=== PATIENT | male | born 1960 | race Caucasian/White ===

== ENCOUNTER 2016-07-06 07:56 | Observation (INO) | payer BC, OTHER ==
[2016-07-06] VITALS (8 sets, daily range): BP systolic 120–158; BP diastolic 69–93
[~2016-07-06] VITALS: Ht 172.7 cm; Wt 95.3 kg
--- OUTSIDE RECORDS SUMMARY | 2016-07-06 08:01 | XMS REPORT ---
Author Author GILLES LUKE [facility] eClinicalWorks Address Unknown Phone Unavailable Care Team Providers Care Planning Analyst Name Role Phone GILLES LUKE CP Unavailable Allergies, Adverse Reactions, Alerts Substance Reaction Event Type N.K.D.A. Info Not Available Non Drug Allergy Problems Problem Type Condition Code Onset Dates Condition Status Assessment Nasal congestion R09.81 Active Assessment Acute recurrent frontal sinusitis J01.11 Active Medications Medication Code System Code Instructions Start Date End Date Status Dosage Zithromax Z-Aiden [facility] [id number] 250 MG Orally Once a day Dec 05, 2015 Dec 10, 2015 2 tablets on the first day, then 1 tablet daily for 4 days Procedures Procedure Coding System Code Date DEPO MEDROL 80 MG/ML CPT-4 J1040 Dec 05, 2015 THER/PROPH/DIAG INJ, SC/IM CPT-4 41673 Dec 05, 2015 Office Visit, Est Pt., Level 3 CPT-4 62642 Dec 05, 2015 Vital Signs Date/Time: Dec 05, 2015 Cardiac Monitoring Heart Rate 72 bpm Weight 210.1 lbs Height 69 in BMI 31.02 Index Blood Pressure Diastolic 78 mmHg Blood Pressure Systolic 126 mmHg Results No Known Results Summary Purpose eClinicalWorks Submission
[2016-07-06] MEDS: RX-NITROGLYCERIN 0.4 MG TAB BTL 25'S SL ONE ×2 (08:11→09:24)
[2016-07-06] MEDS ORDERED: ASPIRIN 81 MG CHEW (CHILDREN'S ASA) PO ONE (08:15)
[2016-07-06 08:24] LABS: BASOPHILS # (AUTO) 0.1 10^3/uL (0.0-0.1); BASOPHILS % (AUTO) 1 % (0-10); EOSINOPHILS # (AUTO) 0.3 10^3/uL (0.0-0.3); EOSINOPHILS % (AUTO) 4 % (0-10); LYMPHOCYTES % (AUTO) 28 % (12-44); MEAN CORPUSCULAR HEMOGLOBIN 30 PG (25-34); MEAN CORPUSCULAR HGB CONC 35 G/DL (32-36); MEAN CORPUSCULAR VOLUME 86 FL (80-99); MEAN PLATELET VOLUME 9.6 FL (7.4-10.4); MONOCYTES # (AUTO) 0.5 X 10^3 (0.0-1.0); MONOCYTES % (AUTO) 8 % (0-12); NEUTROPHILS # (AUTO) 4.2 X 10^3 (1.8-7.8); NEUTROPHILS % (AUTO) 60 % (42-75); PLATELET COUNT 217 10^3/uL (130-400); RED BLOOD COUNT 5.28 10^6/uL (4.35-5.85); RED CELL DISTRIBUTION WIDTH 12.7 % (10.0-14.5); WHITE BLOOD COUNT 7.1 10^3/uL (4.3-11.0)
--- NOTE | 2016-07-06 08:39 | Diagnostic Imaging Report ---
CLINICAL INDICATION: Patient complains of right shoulder pain radiating to the chest since yesterday morning. EXAM: Chest x-ray PA and lateral views. COMPARISONS: None. FINDINGS: Lungs/pleura: Lungs are clear. There is no pneumothorax. There is no pleural effusion. Mediastinum: Unremarkable. Pulmonary vasculature: Unremarkable. Heart: Unremarkable. Bones/extrathoracic soft tissue: There are moderately hypertrophic degenerative osteophytes scattered throughout the thoracic spine. IMPRESSION: There is no radiographic evidence of acute cardiopulmonary process. Dictated by: Dictated on workstation # [id number]
[2016-07-06 08:43] LABS: INR 0.9 (0.8-1.4); PROTHROMBIN TIME PATIENT 12.3 SEC (12.2-14.7)
[2016-07-06 08:49] LABS: ALANINE AMINOTRANSFERASE 19 U/L (0-55); ALBUMIN 4.3 G/DL (3.2-4.5); ANION GAP 12 MMOL/L (5-14); ASPARTATE AMINO TRANSFERASE 25 U/L (5-34); BILIRUBIN,TOTAL 0.5 MG/DL (0.1-1.0); BLOOD UREA NITROGEN 13 MG/DL (7-18); BUN/CREATININE RATIO 11; CALCIUM 9.5 MG/DL (8.5-10.1); CARBON DIOXIDE 23 MMOL/L (21-32); CHLORIDE 105 MMOL/L (98-107); CREATININE SERUM 1.15 MG/DL (0.60-1.30); GFR ESTIMATED > 60; GLUCOSE 93 MG/DL (70-105); MAGNESIUM 2.2 MG/DL (1.8-2.4); SODIUM 140 MMOL/L (135-145); TOTAL PROTEIN 7.6 G/DL (6.4-8.2)
--- NOTE | 2016-07-06 08:49 | ED Chest Pain ---
General Chief Complaint: Chest Pain Stated Complaint: CHEST/BACK PAIN Nursing Triage Note: AMBULATED TO ROOM 05 WITH COMPLAINTS OF RIGHT SIDED CHEST PAIN THAT RADIATES INTO BACK AND RIGHT ARM. STATES HE HAD THIS PAIN YESTERDAY ALSO. DENIES CHEST PAIN AT THIS TIME BUT STATES ARM PAIN REMAINS. Nursing Sepsis Screen: No Definite Risk Source: patient Exam Limitations: no limitations History of Present Illness Time seen by provider: 07:57 Initial Comments This 55-year-old gentleman presents to the emergency room with complaints of intermittent right chest pain described as a soreness rated as 3/10. Pain actually started in the back and beneath the right shoulder blade and then radiated around to the front. It started yesterday afternoon while he was picking up limbs from the ground. Pain resolved but then started again today between 06:00 and 06:30 as he was driving into work. The pain was troublesome enough that he came back from work and decided to come to the hospital. He reports some increase in "soreness " with inspiration. Pain radiates down his right arm. He denies any injury or associated symptoms such as shortness of breath, cough, fever, etc. He had another episode concerning for "heart problems" a couple of years ago. Patient has a tobacco history and quit smoking about 20 years ago. He quit chewing tobacco about 3 months ago. He occasionally drinks alcohol. He still chews tobacco. He has a family history of aneurysm and heart disease in multiple brothers. Patient had some residual pain in the right arm and pain on inspiration in the right chest upon my initial interview. Pain resolved shortly thereafter before nitroglycerin was given. Aspirin was given but nitroglycerin was deferred. No tachycardia, hypoxia, or lower extremity symptoms were noted. Allergies and Home Medications Allergies Coded Allergies: No Known Drug Allergies (Unverified , 07/06/16) Home Medications No Active Prescriptions or Reported Meds Review of Systems Constitutional: no symptoms reported EENTM: No Symptoms Reported Respiratory: See HPI Cardiovascular: See HPI Gastrointestinal: No Symptoms Reported Genitourinary: No Symptoms Reported Musculoskeletal: see HPI Skin: no symptoms reported Psychiatric/Neurological: No Symptoms Reported Endocrine: No Symptoms Reported Past Voegbva-Dimauc-Vgooaw Hx Patient Social History Alcohol Use: Occasionally Uses Recreational Drug Use: No Smoking Status: Former Smoker Type Used: Smokeless Tobacco Recent Foreign Travel: No Contact w/Someone Who Travel: No Recent Infectious Disease Expo: No Recent Hopitalizations: No Seasonal Allergies Seasonal Allergies: Yes Surgeries HX Surgeries: No Respiratory Hx Respiratory Disorders: No Cardiovascular Hx Cardiac Disorders: No Neurological Hx Neurological Disorders: No Reproductive System Hx Reproductive Disorders: No Genitourinary Hx Genitourinary Disorders: No Gastrointestinal Hx Gastrointestinal Disorders: No Musculoskeletal Hx Musculoskeletal Disorders: No Endocrine Hx Endocrine Disorders: No HEENT HX ENT Disorders: No Cancer Hx Cancer: No Psychosocial Hx Psychiatric Problems: No Family Medical History Significant Family History: Vascular Disease (brother had an aneurysm) Physical Exam Vital Signs Vital Sign - Last 12Hours 07/06/16 07:56 Temp 98.1 Pulse 82 Resp 16 B/P 152/91 Pulse Ox 98 Capillary Refill : Less Than 3 Seconds General Appearance: No Apparent Distress WD/WN HEENT: PERRL/EOMI Normal ENT Inspection Pharynx Normal Other (missing teeth) Neck: Normal Inspection Respiratory: Chest Non Tender Lungs Clear Normal Breath Sounds No Accessory Muscle Use No Respiratory Distress Other (no tenderness in the posterior chest or musculature of the back) Cardiovascular: Regular Rate, Rhythm No Edema No Murmur Normal Peripheral Pulses Gastrointestinal: Normal Bowel Sounds Non Tender Soft Extremity: Normal Inspection Non Tender No Calf Tenderness No Pedal Edema Other (negative Yuliet) Neurologic/Psychiatric: Alert Oriented x3 No Motor/Sensory Deficits Normal Mood/Affect informatics pharmacist II-XII Norm as Tested Skin: Normal Color Warm/Dry Focused Exam Respiratory: Chest Non Tender Lungs Clear Normal Breath Sounds No Accessory Muscle Use No Respiratory Distress Cardiovascular: Regular Rate, Rhythm No Edema No Murmur Normal Peripheral Pulses Peripheral Pulses: 3+ Radial Pulses (R), 3+ Radial Pulses (L) Skin: normal color warm/dry Lactic Acid Level Laboratory Tests Test 07/06/16 08:18 Alanine Aminotransferase (ALT/SGPT) 19U/L (0-55) Albumin 4.3G/DL (3.2-4.5) Alkaline Phosphatase 63U/L (40-136) Anion Gap 12MMOL/L (5-14) Aspartate Amino Transf (AST/SGOT) 25U/L (5-34) BUN/Creatinine Ratio 11 Blood Urea Nitrogen 13MG/DL (7-18) Calcium Level 9.5MG/DL (8.5-10.1) Carbon Dioxide Level 23MMOL/L (21-32) Chloride Level 105MMOL/L (98-107) Creatinine 1.15MG/DL (0.60-1.30) Estimat Glomerular Filtration Rate > 60 Glucose Level 93MG/DL (70-105) Magnesium Level 2.2MG/DL (1.8-2.4) Myoglobin 65.9NG/ML (10.0-92.0) Potassium Level 4.0MMOL/L (3.6-5.0) Sodium Level 140MMOL/L (135-145) Total Bilirubin 0.5MG/DL (0.1-1.0) Total Protein 7.6G/DL (6.4-8.2) Troponin I < 0.30NG/ML (<0.30) Progress/Results/Core Measures Results/Orders Lab Results Laboratory Tests Test 07/06/16 08:18 Range/Units Activated Partial Thromboplast Time 28 24-35 SEC Alanine Aminotransferase (ALT/SGPT) 19 0-55 U/L Albumin 4.3 3.2-4.5 G/DL Alkaline Phosphatase 63 40-136 U/L Anion Gap 12 5-14 MMOL/L Aspartate Amino Transf (AST/SGOT) 25 5-34 U/L BUN/Creatinine Ratio 11 Basophils # (Auto) 0.1 0.0-0.1 10^3/uL Basophils (%) (Auto) 1 0-10 % Blood Urea Nitrogen 13 7-18 MG/DL Calcium Level 9.5 8.5-10.1 MG/DL Carbon Dioxide Level 23 21-32 MMOL/L Chloride Level 105 98-107 MMOL/L Creatinine 1.15 0.60-1.30 MG/DL Eosinophils # (Auto) 0.3 0.0-0.3 10^3/uL Eosinophils (%) (Auto) 4 0-10 % Estimat Glomerular Filtration Rate > 60 Glucose Level 93 70-105 MG/DL Hematocrit 46 40-54 % Hemoglobin 16.0 13.3-17.7 G/DL INR Comment 0.9 0.8-1.4 Lymphocytes # (Auto) 2.0 1.0-4.0 X 10^3 Lymphocytes (%) (Auto) 28 12-44 % Magnesium Level 2.2 1.8-2.4 MG/DL Mean Corpuscular Hemoglobin 30 25-34 PG Mean Corpuscular Hemoglobin Concent 35 32-36 G/DL Mean Corpuscular Volume 86 80-99 FL Mean Platelet Volume 9.6 7.4-10.4 FL Monocytes # (Auto) 0.5 0.0-1.0 X 10^3 Monocytes (%) (Auto) 8 0-12 % Myoglobin 65.9 10.0-92.0 NG/ML Neutrophils # (Auto) 4.2 1.8-7.8 X 10^3 Neutrophils (%) (Auto) 60 42-75 % Platelet Count 217 130-400 10^3/uL Potassium Level 4.0 3.6-5.0 MMOL/L Prothrombin Time 12.3 12.2-14.7 SEC Red Blood Count 5.28 4.35-5.85 10^6/uL Red Cell Distribution Width 12.7 10.0-14.5 % Sodium Level 140 135-145 MMOL/L Total Bilirubin 0.5 0.1-1.0 MG/DL Total Protein 7.6 6.4-8.2 G/DL Troponin I < 0.30 <0.30 NG/ML White Blood Count 7.1 4.3-11.0 10^3/uL My Orders Orders-USHA DOVER MD Cbc With Automated Diff (07/06/16 08:06) Magnesium (07/06/16 08:06) Ekg Tracing (07/06/16 08:06) Cardiac Profile 1 (07/06/16 08:06) Comprehensive Metabolic Panel (07/06/16 08:06) Myoglobin Serum (07/06/16 08:06) Protime With Inr (07/06/16 08:06) Partial Thromboplastin Time (07/06/16 08:06) O2 (07/06/16 08:06) Monitor-Rhythm Ecg Trace Only (07/06/16 08:06) Lipid Panel (07/07/16 06:00) Aspirin Chewable Tablet (Baby Aspirin Ch (07/06/16 08:15) Rx-Nitroglycerin Sl Tabs (Rx-Nitrostat S (07/06/16 08:15) Saline Lock/Iv-Start (07/06/16 08:06) Chest Pa/Lat (2 View) (07/06/16 08:06) Medications Given in ED Current Medications Medications Dose Ordered Sig/Jacob Route Start Time Stop Time Status Last Admin Dose Admin Aspirin 324 mg ONCE ONCE PO 07/06/16 08:15 07/06/16 08:16 DC 07/06/16 08:10 324 MG Vital Signs/I&O Vital Sign - Last 12Hours 07/06/16 07:56 Temp 98.1 Pulse 82 Resp 16 B/P 152/91 Pulse Ox 98 Blood Pressure Mean: 111 Progress Note : Time: 08:57 Progress Note Patient received aspirin after initial assessment. Pain resolved without treatment just after my interview and exam. He remains pain-free now. He remains in sinus rhythm with frequent PVCs. Chest x-ray was normal. Troponin is still pending but labs are otherwise negative. ECG Initial ECG Impression Date: Jul 06, 2016 Initial ECG Impression Time: 08:02 Initial ECG Rate: 87 Comment Sinus rhythm with frequent PVCs. Borderline left axis deviation. No abnormal intervals. No ST elevation or depression. Diagnostic Imaging Diagonstic Imaging: Xray Plain Films/CT/US/NM/MRI: chest Comments Chest x-ray viewed by me and report reviewed. See report below: NAME: ALICE COLES MED REC#: [id number] PT STATUS: REG ER : 1960 PHYSICIAN: USHA DOVER MD ADMIT DATE: 07/06/16/ER Draft Date of Exam:07/06/16 CHEST PA/LAT (2 VIEW) CLINICAL INDICATION: Patient complains of right shoulder pain radiating to the chest since yesterday morning. EXAM: Chest x-ray PA and lateral views. COMPARISONS: None. FINDINGS: Lungs/pleura: Lungs are clear. There is no pneumothorax. There is no pleural effusion. Mediastinum: Unremarkable. Pulmonary vasculature: Unremarkable. Heart: Unremarkable. Bones/extrathoracic soft tissue: There are moderately hypertrophic degenerative osteophytes scattered throughout the thoracic spine. IMPRESSION: There is no radiographic evidence of acute cardiopulmonary process. Dictated on workstation # [id number] Dict: 07/06/1634 Trans: 07/06/16 0838 [facility] [id number] Interpreted by: VILLA CULVER MD CP/AMI: Aspirin, ECG Departure Communication Time/Spoke to Admitting Phy: 09:10 Communication Case reviewed with Dr. De La Torre who is agreeable to admission for further chest pain workup. Time/Spoke to Consulting Physi: 09:05 Communication/Consulting Case reviewed with Dr. Chun who believes patient should be admitted for further evaluation as he has never had cardiac workup and has significant family history and tobacco history. Progress Notes Patient remained pain free until admission. Impression Impression: Primary Impression: Right-sided chest pain Additional Impression: Frequent PVCs Disposition: 09 ADMITTED INPATIENT Condition: Improved Decision to Admit Reason: Admit from ER (General) Decision to Admit/Date: Jul 06, 2016 Time/Decision to Admit Time: 09:05 Departure-Patient Inst. Scripts No Active Prescriptions or Reported Meds USHA DOVER MD Jul 06, 2016 08:49
[2016-07-06 08:55] LABS: MYOGLOBIN SERUM 65.9 NG/ML (10.0-92.0)
[2016-07-06] MEDS ORDERED: CATHETER FLUSH 10 ML SYR IV PRN (10:45)
[2016-07-06] MEDS ORDERED: morphine INJ 4 MG/ML 1 ML (VIAL/SYRINGE) IV PRN (10:45)
[2016-07-06] MEDS ORDERED: NITROGLYCERIN SUBLINGUAL 0.4 MG TAB (NITROSTAT) SL PRN (10:45)
[2016-07-06] MEDS ORDERED: ONDANSETRON 4 MG/2 ML (SDV) Z0FRAN IV PRN (10:45)
--- NOTE | 2016-07-06 15:11 | History & Physicial (CHS) ---
HPI History of Present Illness: Patient presented to ED due to chest pain. He had sharp shooting pain from right shoulder blade to front of chest yesterday afternoon for a few seconds and then on his way to work this morning it recurred and he overall felt not well, so he came in. He has no personal history of CAD. He does have a history of smoking, quit some time ago. He has significant family history of heart disease and a brother that at a young age. Attending Physician Sydnee De La Torre [facility] Date of Admission Jul 06, 2016 at 9:37 am Home Medications Home Medications Reviewed patient Home Medication Reconciliation Form Allergies Coded Allergies: No Known Drug Allergies (Unverified , 07/06/16) NPO-Qdbuvk-Tosplz Hx Patient Social History Alcohol Use: Occasionally Uses Recreational Drug Use: No Smoking Status: Former Smoker Type Used: Smokeless Tobacco Recent Foreign Travel: No Contact w/other who traveled: No Recent Hopitalizations: No Recent Infectious Disease Expo: No Physical Abuse Screen: No Sexual Abuse: No Immunizations Up To Date Date of Influenza Vaccine: Jan 26, 2016 Past Medical History PMHx: Denies PSurgHx: Denies Family Medical History Significant Family History: Vascular Disease (brother had an aneurysm) Review of Systems ([facility]) Constitutional: No fever EENTM: No nose congestion, No throat pain Respiratory: No cough, No short of breath Cardiovascular: see HPI Gastrointestinal: No abdominal pain, No constipation, No diarrhea, No nausea, No vomiting Genitourinary: no symptoms reported Musculoskeletal: joint pain Skin: No rash Psychiatric/Neurological: No Symptoms Reported Reviewed Test Results Reviewed Test Results Lab Laboratory Tests Test 07/06/16 08:18 07/06/16 11:07 Range/Units Activated Partial Thromboplast Time 28 24-35 SEC Alanine Aminotransferase (ALT/SGPT) 19 0-55 U/L Albumin 4.3 3.2-4.5 G/DL Alkaline Phosphatase 63 40-136 U/L Anion Gap 12 5-14 MMOL/L Aspartate Amino Transf (AST/SGOT) 25 5-34 U/L BUN/Creatinine Ratio 11 Basophils # (Auto) 0.1 0.0-0.1 10^3/uL Basophils (%) (Auto) 1 0-10 % Blood Urea Nitrogen 13 7-18 MG/DL Calcium Level 9.5 8.5-10.1 MG/DL Carbon Dioxide Level 23 21-32 MMOL/L Chloride Level 105 98-107 MMOL/L Creatinine 1.15 0.60-1.30 MG/DL Eosinophils # (Auto) 0.3 0.0-0.3 10^3/uL Eosinophils (%) (Auto) 4 0-10 % Estimat Glomerular Filtration Rate > 60 Glucose Level 93 70-105 MG/DL Hematocrit 46 40-54 % Hemoglobin 16.0 13.3-17.7 G/DL INR Comment 0.9 0.8-1.4 Lymphocytes # (Auto) 2.0 1.0-4.0 X 10^3 Lymphocytes (%) (Auto) 28 12-44 % Magnesium Level 2.2 1.8-2.4 MG/DL Mean Corpuscular Hemoglobin 30 25-34 PG Mean Corpuscular Hemoglobin Concent 35 32-36 G/DL Mean Corpuscular Volume 86 80-99 FL Mean Platelet Volume 9.6 7.4-10.4 FL Monocytes # (Auto) 0.5 0.0-1.0 X 10^3 Monocytes (%) (Auto) 8 0-12 % Myoglobin 65.9 10.0-92.0 NG/ML Neutrophils # (Auto) 4.2 1.8-7.8 X 10^3 Neutrophils (%) (Auto) 60 42-75 % Platelet Count 217 130-400 10^3/uL Potassium Level 4.0 3.6-5.0 MMOL/L Prothrombin Time 12.3 12.2-14.7 SEC Red Blood Count 5.28 4.35-5.85 10^6/uL Red Cell Distribution Width 12.7 10.0-14.5 % Sodium Level 140 135-145 MMOL/L Total Bilirubin 0.5 0.1-1.0 MG/DL Total Protein 7.6 6.4-8.2 G/DL Troponin I < 0.30 < 0.30 <0.30 NG/ML White Blood Count 7.1 4.3-11.0 10^3/uL Physical Exam-(CHC) Physical Exam Vital Signs VS - Last 72 Hours, by Label 07/06/16 07/06/16 07/06/16 07:56 09:55 10:00 Temp 98.1 97.2 Pulse 82 79 62 Resp 16 16 20 B/P 152/91 143/87 Pulse Ox 98 97 98 Capillary Refill : Less Than 3 Seconds General Appearance: WD/WN no apparent distress Respiratory: lungs clear normal breath sounds Cardiovascular: regular rate, rhythm no murmur Gastrointestinal: normal bowel sounds non tender soft Extremities: no pedal edema Neurologic/Psychiatric: alert normal mood/affect Skin: normal color warm/dry Assessment/Plan Assessment/Plan Admission Dx Chest pain Plan Chest pain: EKG with no ischemic changes, troponin initially negative, will follow -Cardiology consult DVT ppx- SCDs Diagnosis/Problems: Clinical Quality Measures AMI/AHF: ASA po Prior to arrival: No DVT/VTE Risk/Contraindication: Risk Factor Score Per Nursin RFS Level Per Nursing on Admit: 1=Low/No VTE PPX SYDNEE DE LA TORRE MD Jul 06, 2016 3:11 pm
--- NOTE | 2016-07-06 15:39 | Consultation-Cardiology ---
HPI-Cardiology Cardiology Consultation Date of Consultation 07/06/16 Date of Admission Indication: chest pain HPI 55 years old gentleman with no significant past history, started having chest pain described as dull achiness on the right side of her chest occurred yesterday and again this morning on his way to work, came into the emergency room, since arrival she has been doing well, noted to have frequent premature ventricular contractions on telemetry and on his EKG. Patient has a strong family history of heart disease. Denied any palpitation, syncope or near syncopal episode no claudication, no shortness of breath. Does not take any medications at home. Home Medications & Allergies Allergies: Coded Allergies: No Known Drug Allergies (Unverified , 07/06/16) Home Medication List Reviewed: Yes XUV-Kcjvgm-Stkxhz Hx Patient Social History Marital Status: Alcohol Use: Occasionally Uses Recreational Drug Use: No Smoking Status: Former Smoker Type Used: Smokeless Tobacco Recent Foreign Travel: No Recent Infectious Disease Expo: No Recent Hopitalizations: No Physical Abuse Screen: No Sexual Abuse: No Immunizations Up To Date Date of Influenza Vaccine: Jan 26, 2016 Past Medical History no significant past medical history Family Medical History Significant Family History: Vascular Disease (brother had an aneurysm) Family Medical Hx Strong family history of heart disease with brother had myocardial infarctions in his 30s, mother has history of heart attack Family History: Cardiovascular disease Hypertension Myocardial infarction Respiratory disorder Constitutional: no symptoms reported see HPI EENTM: no symptoms reported see HPI Respiratory: no symptoms reported see HPINo cough, No dyspnea on exertion, No hemoptysis, No orthopnea, No phlegm, No short of breath, No stridor, No wheezing , No other Cardiovascular: see HPI chest painNo edema, No Hx of Intervention, No palpitations, No syncope, No vascular heart diseas, No other Gastrointestinal: no symptoms reported see HPI Genitourinary: no symptoms reported see HPI Musculoskeletal: no symptoms reported see HPI Skin: no symptoms reported see HPI Psychiatric/Neurological: No Symptoms Reported See HPI Reviewed Test Results Reviewed Test Results Lab Laboratory Tests Test 07/06/16 08:18 07/06/16 11:07 Range/Units Activated Partial Thromboplast Time 28 24-35 SEC Alanine Aminotransferase (ALT/SGPT) 19 0-55 U/L Albumin 4.3 3.2-4.5 G/DL Alkaline Phosphatase 63 40-136 U/L Anion Gap 12 5-14 MMOL/L Aspartate Amino Transf (AST/SGOT) 25 5-34 U/L BUN/Creatinine Ratio 11 Basophils # (Auto) 0.1 0.0-0.1 10^3/uL Basophils (%) (Auto) 1 0-10 % Blood Urea Nitrogen 13 7-18 MG/DL Calcium Level 9.5 8.5-10.1 MG/DL Carbon Dioxide Level 23 21-32 MMOL/L Chloride Level 105 98-107 MMOL/L Creatinine 1.15 0.60-1.30 MG/DL Eosinophils # (Auto) 0.3 0.0-0.3 10^3/uL Eosinophils (%) (Auto) 4 0-10 % Estimat Glomerular Filtration Rate > 60 Glucose Level 93 70-105 MG/DL Hematocrit 46 40-54 % Hemoglobin 16.0 13.3-17.7 G/DL INR Comment 0.9 0.8-1.4 Lymphocytes # (Auto) 2.0 1.0-4.0 X 10^3 Lymphocytes (%) (Auto) 28 12-44 % Magnesium Level 2.2 1.8-2.4 MG/DL Mean Corpuscular Hemoglobin 30 25-34 PG Mean Corpuscular Hemoglobin Concent 35 32-36 G/DL Mean Corpuscular Volume 86 80-99 FL Mean Platelet Volume 9.6 7.4-10.4 FL Monocytes # (Auto) 0.5 0.0-1.0 X 10^3 Monocytes (%) (Auto) 8 0-12 % Myoglobin 65.9 10.0-92.0 NG/ML Neutrophils # (Auto) 4.2 1.8-7.8 X 10^3 Neutrophils (%) (Auto) 60 42-75 % Platelet Count 217 130-400 10^3/uL Potassium Level 4.0 3.6-5.0 MMOL/L Prothrombin Time 12.3 12.2-14.7 SEC Red Blood Count 5.28 4.35-5.85 10^6/uL Red Cell Distribution Width 12.7 10.0-14.5 % Sodium Level 140 135-145 MMOL/L Total Bilirubin 0.5 0.1-1.0 MG/DL Total Protein 7.6 6.4-8.2 G/DL Troponin I < 0.30 < 0.30 <0.30 NG/ML White Blood Count 7.1 4.3-11.0 10^3/uL Physical Exam Vital Signs Vital Sign - Last 12Hours 07/06/16 07/06/16 07:56 12:00 Temp 98.1 Pulse 82 Resp 16 B/P 152/91 Pulse Ox 98 O2 Delivery Room Air Capillary Refill : Less Than 3 Seconds General Appearance: No Apparent Distress WD/WN Eyes: Bilateral Eye EOMI, Bilateral Eye Normal Inspection, Bilateral Eye PERRL HEENT: PERRL/EOMI TMs Normal Normal ENT Inspection Pharynx Normal Neck: Full Range of Motion Normal Inspection Non Tender Supple Carotid Bruit Respiratory: Chest Non Tender Lungs Clear Normal Breath Sounds No Accessory Muscle Use No Respiratory Distress Cardiovascular: Regular Rate, Rhythm No Edema No Gallop No JVD No Murmur Normal Peripheral Pulses Gastrointestinal: Normal Bowel Sounds No Organomegaly No Pulsatile Mass Non Tender Soft Back: Normal Inspection No CVA Tenderness No Vertebral Tenderness Extremity: Normal Capillary Refill Normal Inspection Normal Range of Motion Non Tender No Calf Tenderness No Pedal Edema Neurologic/Psychiatric: Alert Oriented x3 No Motor/Sensory Deficits Normal Mood/Affect Skin: Normal Color Warm/Dry Lymphatic: No Adenopathy A/P-Cardiology Admission Diagnosis Chest pain nonspecific etiology Hypertension Frequent premature ventricular contractions Family history of heart disease Assessment/Plan Chest pain nonspecific etiology atypical in presentation. I am planning to proceed with a stress test. No similar episodes in the past. I will continue monitoring. Strong family history of heart disease. Frequent PVCs noted on telemetry on EKG. No palpitation. Hypertension, I am planning to initiate low-dose beta blockers for his blood pressure and for his PVCs. Clinical Quality Measures AMI/AHF: ASA po Prior to arrival: No DVT/VTE Risk/Contraindication: Risk Factor Score Per Nursin RFS Level Per Nursing on Admit: 1=Low/No VTE PPX KEENAN BURTON MD Jul 06, 2016 15:39
[2016-07-06] MEDS: CATHETER FLUSH 10 ML SYR IV SCH ×2 (16:55→21:30)
[2016-07-07] VITALS: BP 138/81
[2016-07-07 04:00] VITALS: BP 115/62
[2016-07-07] MEDS: CATHETER FLUSH 10 ML SYR IV SCH (06:17)
[2016-07-07 06:51] LABS: CHOLESTEROL 182 MG/DL (< 200); DIRECT LDL 114 MG/DL (1-129); TRIGLYCERIDES 136 MG/DL (<150); VLDL CHOLESTEROL 27 MG/DL (5-40)
[2016-07-07 08:00] VITALS: BP 129/73
--- NOTE | 2016-07-07 08:07 | ECHOCARDIOGRAPHY REPORT ---
PROCEDURE PHYSICIAN: KEENAN BURTON DATE OF PROCEDURE: 07/06/2016 TWO DIMENSIONAL ECHOCARDIOGRAM REPORT PRIMARY PHYSICIAN: OTHER PHYSICIAN: [facility] ORDERING PHYSICIAN: INDICATION FOR THE PROCEDURE: Chest pain. MEASUREMENTS DERIVED VALUES LV DIAMETER (LAX) NORMALS NORMALS Diastolic 5.1 (3.6-5.2) Eject. Fract. 60% (60%+/-6%) Systolic (2.3-3.9) Diastolic Vol. % Shortening (0.22-0.42) Systolic Vol. Aortic Root IVS THICKNESS Diastolic 1.1 (0.6-1.1) LVPW THICKNESS Diastolic 1 (0.6-1.1) LA DIAMETER Systolic 3.6 (2.1-3.7) FINDINGS: 1. Technical quality is good. 2. The left ventricle is normal in size with normal contractility. Systolic function appeared to be normal. Estimated ejection fraction 60%. 3. The left atrium is normal in size. No clot or thrombus were seen within the left atrium. 4. The right atrium and right ventricle are normal in size. No clot or thrombus were seen within the right side. 5. Mitral valve is normal in morphology with mild mitral regurgitation noted by color Doppler flow. No mitral valve prolapse. No mitral valve stenosis. 6. Aortic valve is trileaflet with normal opening and closing pattern. No significant aortic stenosis or regurgitation was seen. 7. Tricuspid valve is normal in morphology with mild tricuspid regurgitation noted by color Doppler flow. Doppler across tricuspid valve estimated pulmonary artery pressure of 17+ right atrial pressure. 8. Pulmonic valve is functioning normally. 9. No pericardial effusion. IN CONCLUSION: 1. Normal left ventricular size and systolic function. Estimated ejection fraction 60%. 2. Mild mitral and tricuspid regurgitation. 3. Estimated pulmonary artery pressure of 25 mmHg. Job ID: [id number] Dictated Date: 07/06/2016 16:50:50 Habitat Biologist Date: 07/07/2016 08:04:07 / katlyn
--- NOTE | 2016-07-07 08:10 | STRESS TEST ---
PROCEDURE PHYSICIAN: KEENAN BURTON DATE OF PROCEDURE: 07/06/2016 EXERCISE STRESS ECHOCARDIOGRAM REPORT: REFERRING PHYSICIAN: Dr. De La Torre. INDICATION FOR THE PROCEDURE: Chest pain. BASELINE HEART RATE: 61 BASELINE BLOOD PRESSURE: 144/74 BASELINE EKG: Sinus rhythm with frequent PVCs. IN SUMMARY: The patient started exercising with a baseline heart rate, blood pressure and EKG mentioned above. Early in exercise, he continued to have frequent PVCs, ventricular bigeminy and ventricular couplets. After exercising for 9 minutes, his PVCs had disappeared. He continued to exercise for total of 10 minutes on standard Nahid protocol, achieving maximum heart rate of 149, which is 91% of maximum expected heart rate. With peak exercise level, EKG was showing minimal nondiagnostic changes. Blood pressure was 202/97. No acute ischemic changes. No PVCs were noted at peak stress level. During recovery, after his heart rate returned to below 120, he started having PVCs again. Blood pressure and heart rate returned to baseline. EKG returned to baseline. Echocardiographic images were acquired and reviewed in the parasternal long axis parasternal short axis, apical 4 chamber and apical 2 chamber views. Review of the images showed normal left ventricular size with normal contractility with no ischemic changes. IN CONCLUSION: 1. Excellent exercise tolerance a total of 10 minutes on standard Nahid protocol. Total of 12.8 METs, achieving 91% of maximum expected heart rate. 2. Frequent PVCs, ventricular bigeminy and ventricular couplets noted early in exercise and late in recovery, improved at peak stress level which probably represents benign PVCs. 3. Severe hypertensive response to exercise, returned to baseline during recovery. 4. Minimal nondiagnostic EKG changes with exercise, returned to baseline during recovery. 5. Normal echocardiographic images at rest and with peak stress level with the use of Definity for better enhancement of the myocardium with no significant ischemic changes. DISCUSSION AND RECOMMENDATION: I will start the patient on low dose beta nils and evaluate his tolerance and response. Job ID: [id number] Dictated Date: 07/06/2016 16:53:10 Solution Spec Date: 07/07/2016 08:06:59 / katlyn
[2016-07-07] MEDS ORDERED: ASPIRIN E.C. 325 MG (ECOTRIN) TABLET PO SCH (09:00)
--- NOTE | 2016-07-07 09:11 | Cardiology Progress Note ---
Subjective Subjective/Events-last exam Patient sitting up in chair, denies any CP or dyspnea. Denies any palpitations. Review of Systems General: No Night Sweats, No Fatigue, No Malaise HEENT: No Visual Changes, No Dysphasia, No Sore Throat Pulmonary: No Dyspnea, No Cough Cardiovascular: No: Chest Pain, Edema, Orthopnea, Palpitations, Paroxysmal Noc. Dyspnea Gastrointestinal: No: Abdominal Pain, Nausea, Vomiting Genitourinary: No Dysuria, No Frequency Musculoskeletal: No: back pain, neck pain Neurological: No: Change in speech, Confusion, Numbness, Weakness Objective-Cardiology Exam Last Set of Vital Signs Vital Signs 07/07/16 04:00 Temp 96.7 Pulse 54 Resp 20 B/P 115/62 Pulse Ox 97 O2 Delivery Room Air Capillary Refill : Less Than 3 Seconds I&O Bad tableGeneral: Alert, Oriented X3, Cooperative HEENT: Atraumatic, PERRLA Neck: Supple, No JVD, No Thyromegaly Lungs: Clear to Auscultation, Normal Air Movement Heart: Regular Rate, Normal S1, Normal S2, No Murmurs Abdomen: Normal Bowel Sounds, Soft, No Tenderness, No Hepatosplenomegaly, No Masses Extremities: No Clubbing, No Cyanosis, No Edema, Normal Pulses, No Tenderness/ Swelling Skin: No Rashes, No Breakdown, No Significant Lesion Neuro: Normal Gait, Normal Speech, Strength at 5/5 X4 Ext, Normal Tone, Sensation Intact A/P-Cardiology Admission Diagnosis Chest pain nonspecific etiology Hypertension Frequent premature ventricular contractions Family history of heart disease Assessment/Plan Chest pain nonspecific etiology atypical in presentation. Stress echo done yesterday revealed excellent exercise tolerance a total of 10 minutes.Frequent PVCs, ventricular bigeminy and ventricular couplets noted early in exercise and late in recovery, improved at peak stress level which probably represents benign PVCs. Normal echocardiographic images at rest and with peak stress with no significant ischemic changes. Started on Toprol XL yesterday. Strong family history of heart disease. Frequent PVCs noted on telemetry and EKG. Continue beta nils. Hypertension, controlled. Continue to monitor BP/HR Clinical Quality Measures AMI/AHF: ASA po Prior to arrival: No DVT/VTE Risk/Contraindication: Risk Factor Score Per Nursin RFS Level Per Nursing on Admit: 1=Low/No VTE PPX GEOFFREY HUGHES 15, 2017 09:11
[2016-07-07] MEDS ORDERED: METO-270 PO (09:36)
--- NOTE | 2016-07-07 09:40 | Discharge Instructions ---
Discharge [facility] Discharge Medications New, Converted or Re-Newed RX: Call to Patients Pharmacy ([facility]) New Medications: Metoprolol Succinate (Metoprolol Succinate) 25 Mg Tab.er.24h 25 MG PO DAILY #30 Ref 0 TAB Patient Instructions Goal/Follow Up Appt: Follow up with Dr. Chun as instructed Follow up with Devendra Chen APRN 07/13 at 2 pm at the [facility] clinic. Return to The Hospital For: Shortness of breath, chest pain, palpitations Activity & Diet Discharge Diet: Cardiac Diet Activity as Tolerated: Yes Orders-Post D/C & Referrals Pneu Vac Indicated: Yes Copy Copies To 1: ED Ruiz BETHANY N MD Jul 07, 2016 9:39 am
--- NOTE | 2016-07-07 09:41 | Discharge Summary ---
Diagnosis/Chief Complaint Date of Admission Jul 06, 2016 at 9:37 am Date of Discharge Admission Diagnosis Admission Diagnosis Chest pain Discharge Diagnosis Chest pain- stress echocardiogram done with no ischemia PVCs- frequent PVCs noted with stress, asymptomatic, Toprol XL started by Cardiology for PVCs and HTN Hypertensive response to exercise- see above Dyslipidemia- LDL 113, HDL 33, discussed consideration of medication with his primary provider Chief Complaint/HPI Chief Complaint/HPI Patient presented to ED due to chest pain. He had sharp shooting pain from right shoulder blade to front of chest yesterday afternoon for a few seconds and then on his way to work this morning it recurred and he overall felt not well, so he came in. He has no personal history of CAD. He does have a history of smoking, quit some time ago. He has significant family history of heart disease and a brother that at a young age. Discharge Summary-Simple/Stand Consultations Discharge Physical Examination Allergies: Coded Allergies: No Known Drug Allergies (Unverified , 07/06/16) Vitals & I&Os Vital Sign - Last 12Hours Date Time Temp Pulse Resp B/P Pulse Ox O2 Delivery O2 Flow Rate FiO2 07/07/16 04:00 96.7 54 20 115/62 97 Room Air Intake and Output 07/06/16 23:59 Intake Total 600 ml Output Total 300 ml Balance 300 ml General Appearance: Alert, No Acute Distress Respiratory: Clear to Auscultation, Normal Air Movement Cardiovascular: Regular Rate, No Murmurs Neuro: Normal Speech Psych/Mental Status: Mental Status NL Hospital Course See final discharge diagnosis. Labs Laboratory Tests Test 07/06/16 08:18 07/06/16 11:07 07/06/16 17:00 07/07/16 05:30 Range/Units Activated Partial Thromboplast Time 28 24-35 SEC Alanine Aminotransferase (ALT/SGPT) 19 0-55 U/L Albumin 4.3 3.2-4.5 G/DL Alkaline Phosphatase 63 40-136 U/L Anion Gap 12 5-14 MMOL/L Aspartate Amino Transf (AST/SGOT) 25 5-34 U/L BUN/Creatinine Ratio 11 Basophils # (Auto) 0.1 0.0-0.1 10^3/uL Basophils (%) (Auto) 1 0-10 % Blood Urea Nitrogen 13 7-18 MG/DL Calcium Level 9.5 8.5-10.1 MG/DL Carbon Dioxide Level 23 21-32 MMOL/L Chloride Level 105 98-107 MMOL/L Creatinine 1.15 0.60-1.30 MG/DL Eosinophils # (Auto) 0.3 0.0-0.3 10^3/uL Eosinophils (%) (Auto) 4 0-10 % Estimat Glomerular Filtration Rate > 60 Glucose Level 93 70-105 MG/DL Hematocrit 46 40-54 % Hemoglobin 16.0 13.3-17.7 G/DL INR Comment 0.9 0.8-1.4 Lymphocytes # (Auto) 2.0 1.0-4.0 X 10^3 Lymphocytes (%) (Auto) 28 12-44 % Magnesium Level 2.2 1.8-2.4 MG/DL Mean Corpuscular Hemoglobin 30 25-34 PG Mean Corpuscular Hemoglobin Concent 35 32-36 G/DL Mean Corpuscular Volume 86 80-99 FL Mean Platelet Volume 9.6 7.4-10.4 FL Monocytes # (Auto) 0.5 0.0-1.0 X 10^3 Monocytes (%) (Auto) 8 0-12 % Myoglobin 65.9 10.0-92.0 NG/ML Neutrophils # (Auto) 4.2 1.8-7.8 X 10^3 Neutrophils (%) (Auto) 60 42-75 % Platelet Count 217 130-400 10^3/uL Potassium Level 4.0 3.6-5.0 MMOL/L Prothrombin Time 12.3 12.2-14.7 SEC Red Blood Count 5.28 4.35-5.85 10^6/uL Red Cell Distribution Width 12.7 10.0-14.5 % Sodium Level 140 135-145 MMOL/L Total Bilirubin 0.5 0.1-1.0 MG/DL Total Protein 7.6 6.4-8.2 G/DL Troponin I < 0.30 < 0.30 < 0.30 <0.30 NG/ML White Blood Count 7.1 4.3-11.0 10^3/uL Cholesterol Level 182 < 200 MG/DL HDL Cholesterol 33 L 40-60 MG/DL LDL Cholesterol Direct 114 1-129 MG/DL Triglycerides Level 136 <150 MG/DL VLDL Cholesterol 27 5-40 MG/DL Discharge Instructions to patient/family Please see electonic discharge instructions given to patient. Discharge Medications Reviewed and agree with Discharge Medication list on patient's Discharge Instruction sheet Clinical Quality Measures AMI/AHF: ASA po Prior to arrival: No DVT/VTE Risk/Contraindication: Risk Factor Score Per Nursin RFS Level Per Nursing on Admit: 1=Low/No VTE PPX Copy Copies To 1: ED Ruiz BETHANY N MD Jul 07, 2016 9:41 am
--- NOTE | 2016-07-07 11:56 | Cardiology Progress Note ---
Subjective Subjective/Events-last exam patient is feeling better, blood pressure is better, denied any chest pain, being discharged home today Review of Systems General: No Chills, No Night Sweats, No Fatigue, No Malaise, No Appetite, No Other HEENT: No Head Aches, No Visual Changes, No Eye Pain, No Ear Pain, No Dysphasia , No Sinus Congestion, No Post Nasal Drip, No Sore Throat, No Other Pulmonary: No Dyspnea, No Cough, No Pleuritic Chest Pain, No Other Cardiovascular: No: Chest Pain, Edema, Lt Headedness, Orthopnea, Other, Palpitations, Paroxysmal Noc. Dyspnea Objective-Cardiology Exam Last Set of Vital Signs Vital Signs 07/07/16 08:00 Temp 97.5 Pulse 51 Resp 20 B/P 129/73 Pulse Ox 98 O2 Delivery Room Air Capillary Refill : Less Than 3 Seconds I&O Bad tableGeneral: Alert, Oriented X3, Cooperative, No Acute Distress HEENT: Atraumatic, PERRLA Neck: Supple, No JVD, No Thyromegaly Lungs: Clear to Auscultation, Normal Air Movement Heart: Regular Rate, Normal S1, Normal S2, No Murmurs Abdomen: Normal Bowel Sounds, Soft, No Tenderness, No Hepatosplenomegaly, No Masses Extremities: No Clubbing, No Cyanosis, No Edema, Normal Pulses, No Tenderness/ Swelling Skin: No Rashes, No Breakdown, No Significant Lesion Neuro: Normal Speech Psych/Mental Status: Mental Status NL A/P-Cardiology Admission Diagnosis Chest pain nonspecific etiology Hypertension Frequent premature ventricular contractions Family history of heart disease Assessment/Plan Chest pain nonspecific etiology atypical in presentation. Stress echo done yesterday revealed excellent exercise tolerance a total of 10 minutes.Frequent PVCs, ventricular bigeminy and ventricular couplets noted early in exercise and late in recovery, improved at peak stress level which probably represents benign PVCs. Normal echocardiographic images at rest and with peak stress with no significant ischemic changes. Started on Toprol XL yesterday. Strong family history of heart disease. Frequent PVCs noted on telemetry and EKG. Continue beta nils. Hypertension, controlled. Continue to monitor BP/HRnext Okay for discharge, discussed with him the medication and follow-up as an outpatient. Clinical Quality Measures AMI/AHF: ASA po Prior to arrival: No DVT/VTE Risk/Contraindication: Risk Factor Score Per Nursin RFS Level Per Nursing on Admit: 1=Low/No VTE PPX KEENAN BURTON MD Jul 07, 2016 11:56
[2016-07-07 13:20] VITALS: BP 129/73
== END 2016-07-07 09:37 | disposition home or self-care (01) ==
LOC: EDUNIT# 07:56 → ER 07:58 → 4TH 09:37 → UNDOADMOB 09:37 → 4TH 10:00 → UNDODISOB 07-07 09:37
PROVIDERS: ADMIT Family Medicine; ATTEND Family Medicine
DX: R07.9 Chest pain, unspecified (principal); I49.3 Ventricular premature depolarization; I10 Essential (primary) hypertension; E78.5 Hyperlipidemia, unspecified; Z87.891 Personal history of nicotine dependence; Z82.49 Family history of ischemic heart disease and other diseases of the circulatory system
CPT/HCPCS: 36415; 71020; 80053; 80061; 83735; 83874; 84484; 85025; 85610; 85730; 93005; 93041; 93306; G0378

== ENCOUNTER 2016-07-07 21:07 | Emergency (ER) | payer BC ==
[~2016-07-07] VITALS: Ht 172.7 cm; Wt 95.3 kg
[~2016-07-07 21:07] MED LIST: METO-270 PO
[2016-07-07 21:44] LABS: BASOPHILS # (AUTO) 0.1 10^3/uL (0.0-0.1); BASOPHILS % (AUTO) 2 % (0-10); EOSINOPHILS # (AUTO) 0.5 10^3/uL (0.0-0.3); EOSINOPHILS % (AUTO) 6 % (0-10); LYMPHOCYTES % (AUTO) 36 % (12-44); MEAN CORPUSCULAR HEMOGLOBIN 30 PG (25-34); MEAN CORPUSCULAR HGB CONC 35 G/DL (32-36); MEAN CORPUSCULAR VOLUME 87 FL (80-99); MEAN PLATELET VOLUME 9.7 FL (7.4-10.4); MONOCYTES # (AUTO) 0.6 X 10^3 (0.0-1.0); MONOCYTES % (AUTO) 8 % (0-12); NEUTROPHILS % (AUTO) 49 % (42-75); PLATELET COUNT 216 10^3/uL (130-400); RED BLOOD COUNT 5.09 10^6/uL (4.35-5.85); RED CELL DISTRIBUTION WIDTH 12.9 % (10.0-14.5); WHITE BLOOD COUNT 8.2 10^3/uL (4.3-11.0)
[2016-07-07] MEDS ORDERED: ASPIRIN 81 MG CHEW (CHILDREN'S ASA) PO ONE (21:45)
--- NOTE | 2016-07-07 22:03 | Diagnostic Imaging Report ---
Indication: Chest pain. Discussion: Single portable upright view of the chest was obtained, comparison 07/06/2016. The heart and lungs remain normal. No osseous abnormality. Impression: 1. Negative portable chest. Dictated by: Dictated on workstation # [id number]
[2016-07-07 22:04] LABS: ALANINE AMINOTRANSFERASE 19 U/L (0-55); ALBUMIN 4.2 G/DL (3.2-4.5); AMYLASE 134 U/L (25-125); ANION GAP 13 MMOL/L (5-14); ASPARTATE AMINO TRANSFERASE 24 U/L (5-34); BILIRUBIN,TOTAL 0.4 MG/DL (0.1-1.0); BLOOD UREA NITROGEN 16 MG/DL (7-18); BUN/CREATININE RATIO 14; CALCIUM 9.5 MG/DL (8.5-10.1); CARBON DIOXIDE 21 MMOL/L (21-32); CHLORIDE 105 MMOL/L (98-107); CREATININE SERUM 1.18 MG/DL (0.60-1.30); GFR ESTIMATED > 60; GLUCOSE 101 MG/DL (70-105); LIPASE 25 U/L (8-78); MAGNESIUM 2.3 MG/DL (1.8-2.4); POTASSIUM 3.8 MMOL/L (3.6-5.0); SODIUM 139 MMOL/L (135-145); TOTAL PROTEIN 7.1 G/DL (6.4-8.2)
[2016-07-07 22:11] LABS: MYOGLOBIN SERUM 104.3 NG/ML (10.0-92.0)
--- NOTE | 2016-07-07 23:24 | ED Cardiac General ---
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 Reports came to ED 07/06/16 for same and admitted and released after lunch today. Pt placed on BP med but had no ASA or NTG orders for home. Source: patient, family Exam Limitations: no limitations History of Present Illness Time seen by provider: 23:00 Initial Comments Here with report of back pain that went to his chest. This is similar to what he had yesterday and was admitted for. He was discharged today after negative stress test and echo. He does have follow-up with [facility] and with Dr. Chun. He was started on blood pressure medicines. He states that he got home and had a few second twinge of the same pain and wanted to make sure everything was okay so came back. He lives approximately an hour away from the hospital. Denies nausea, vomiting, weakness, sweating or breathing problems. Overall he has had no pain since arrival and had no pain essentially on the way here either. Timing/Duration: intermittent, resolved prior to arrival, gone now Severity: mild Location: back Activities at Onset: none Prior CP/Workup: echocardiography, stress test Modifying Factors: improves with rest NTG SL COMPUTER ENGINEERING TECHNICIAN: No ASA po COMPUTER ENGINEERING TECHNICIAN: Yes (at 1016 this a.m. in hosp) Associated Systoms: Chest PainNo Fever/Chills, No Nausea/Vomiting, No Shortness of Air, No Weakness Allergies and Home Medications Allergies Coded Allergies: No Known Drug Allergies (Unverified , 07/06/16) Home Medications Metoprolol Succinate 25 Mg Tab.er.24h #30 25 MG PO DAILY Prescribed by: SYDNEE MARINELLI on 07/07/16 0936 Review of Systems Constitutional: see HPINo chills, No fever EENTM: No Symptoms Reported Respiratory: No Symptoms Reported Cardiovascular: See HPI Chest PainDenies Irregular Heart Rate Gastrointestinal: No Symptoms Reported Genitourinary: No Symptoms Reported Musculoskeletal: no symptoms reported Skin: no symptoms reported Psychiatric/Neurological: No Symptoms Reported All Other Systems Reviewed Negative Unless Noted: Yes Past Tfvpyin-Rgcjad-Ndovdw Hx Patient Social History Alcohol Use: Occasionally Uses Recreational Drug Use: No Type Used: Smokeless Tobacco Recent Foreign Travel: No Contact w/Someone Who Travel: No Recent Infectious Disease Expo: No Recent Hopitalizations: No Immunizations Up To Date Date of Influenza Vaccine: Jan 26, 2016 Seasonal Allergies Seasonal Allergies: Yes Surgeries HX Surgeries: No Respiratory Hx Respiratory Disorders: No Cardiovascular Hx Cardiac Disorders: Yes Cardiac Disorders: Hypertension Neurological Hx Neurological Disorders: No Reproductive System Hx Reproductive Disorders: No Genitourinary Hx Genitourinary Disorders: No Gastrointestinal Hx Gastrointestinal Disorders: No Musculoskeletal Hx Musculoskeletal Disorders: No Endocrine Hx Endocrine Disorders: No HEENT HX ENT Disorders: No Cancer Hx Cancer: No Psychosocial Hx Psychiatric Problems: No Integumentary HX Skin/Integumentary Disorder: No Blood Transfusions Hx Blood Disorders: No Reviewed Nursing Assessment Reviewed/Agree w Nursing PMH: Yes Family Medical History Significant Family History: No Pertinent Family Hx, Vascular Disease Family Medial History: Cardiovascular disease Hypertension Myocardial infarction Respiratory disorder Physical Exam Vital Signs Vital Sign - Last 12Hours Capillary Refill : Less Than 3 Seconds General Appearance: No Apparent Distress WD/WN HEENT: PERRL/EOMI Pharynx Normal Neck: Non Tender Supple Respiratory: Lungs Clear Normal Breath Sounds Cardiovascular: Regular Rate, Rhythm No Murmur Gastrointestinal: Non Tender Soft Extremity: Normal Range of Motion Non Tender No Calf Tenderness Neurologic/Psychiatric: Alert Oriented x3 Skin: Normal Color Warm/Dry Focused Exam Lactic Acid Level Laboratory Tests Test 07/07/16 21:27 07/07/16 23:45 Alanine Aminotransferase (ALT/SGPT) 19U/L (0-55) Albumin 4.2G/DL (3.2-4.5) Alkaline Phosphatase 59U/L (40-136) Amylase Level 134U/L (25-125) H Anion Gap 13MMOL/L (5-14) Aspartate Amino Transf (AST/SGOT) 24U/L (5-34) BUN/Creatinine Ratio 14 Blood Urea Nitrogen 16MG/DL (7-18) Calcium Level 9.5MG/DL (8.5-10.1) Carbon Dioxide Level 21MMOL/L (21-32) Chloride Level 105MMOL/L (98-107) Creatinine 1.18MG/DL (0.60-1.30) Estimat Glomerular Filtration Rate > 60 Glucose Level 101MG/DL (70-105) Lipase 25U/L (8-78) Magnesium Level 2.3MG/DL (1.8-2.4) Myoglobin 104.3NG/ML (10.0-92.0) H 75.2NG/ML (10.0-92.0) Potassium Level 3.8MMOL/L (3.6-5.0) Sodium Level 139MMOL/L (135-145) Total Bilirubin 0.4MG/DL (0.1-1.0) Total Protein 7.1G/DL (6.4-8.2) Troponin I < 0.30NG/ML (<0.30) < 0.30NG/ML (<0.30) Progress/Results/Core Measures Results/Orders Lab Results Laboratory Tests Test 07/07/16 21:27 07/07/16 23:45 Range/Units Activated Partial Thromboplast Time 29 24-35 SEC Alanine Aminotransferase (ALT/SGPT) 19 0-55 U/L Albumin 4.2 3.2-4.5 G/DL Alkaline Phosphatase 59 40-136 U/L Amylase Level 134 H 25-125 U/L Anion Gap 13 5-14 MMOL/L Aspartate Amino Transf (AST/SGOT) 24 5-34 U/L BUN/Creatinine Ratio 14 Basophils # (Auto) 0.1 0.0-0.1 10^3/uL Basophils (%) (Auto) 2 0-10 % Blood Urea Nitrogen 16 7-18 MG/DL Calcium Level 9.5 8.5-10.1 MG/DL Carbon Dioxide Level 21 21-32 MMOL/L Chloride Level 105 98-107 MMOL/L Creatinine 1.18 0.60-1.30 MG/DL Eosinophils # (Auto) 0.5 H 0.0-0.3 10^3/uL Eosinophils (%) (Auto) 6 0-10 % Estimat Glomerular Filtration Rate > 60 Glucose Level 101 70-105 MG/DL Hematocrit 44 40-54 % Hemoglobin 15.4 13.3-17.7 G/DL INR Comment 1.0 0.8-1.4 Lipase 25 8-78 U/L Lymphocytes # (Auto) 3.0 1.0-4.0 X 10^3 Lymphocytes (%) (Auto) 36 12-44 % Magnesium Level 2.3 1.8-2.4 MG/DL Mean Corpuscular Hemoglobin 30 25-34 PG Mean Corpuscular Hemoglobin Concent 35 32-36 G/DL Mean Corpuscular Volume 87 80-99 FL Mean Platelet Volume 9.7 7.4-10.4 FL Monocytes # (Auto) 0.6 0.0-1.0 X 10^3 Monocytes (%) (Auto) 8 0-12 % Myoglobin 104.3 H 75.2 10.0-92.0 NG/ML Neutrophils # (Auto) 4.0 1.8-7.8 X 10^3 Neutrophils (%) (Auto) 49 42-75 % Platelet Count 216 130-400 10^3/uL Potassium Level 3.8 3.6-5.0 MMOL/L Prothrombin Time 13.0 12.2-14.7 SEC Red Blood Count 5.09 4.35-5.85 10^6/uL Red Cell Distribution Width 12.9 10.0-14.5 % Sodium Level 139 135-145 MMOL/L Total Bilirubin 0.4 0.1-1.0 MG/DL Total Protein 7.1 6.4-8.2 G/DL Troponin I < 0.30 < 0.30 <0.30 NG/ML White Blood Count 8.2 4.3-11.0 10^3/uL My Orders Orders-LINA POSADA MD Cbc With Automated Diff (07/07/16 21:34) Magnesium (07/07/16 21:34) Chest 1 View, Ap/Pa Only (07/07/16 21:34) Ekg Tracing (07/07/16 21:34) Cardiac Profile 1 (07/07/16 21:34) Comprehensive Metabolic Panel (07/07/16 21:34) Myoglobin Serum (07/07/16 21:34) Protime With Inr (07/07/16 21:34) Partial Thromboplastin Time (07/07/16 21:34) O2 (07/07/16 21:34) Monitor-Rhythm Ecg Trace Only (07/07/16 21:34) Aspirin Chewable Tablet (Baby Aspirin Ch (07/07/16 21:45) Saline Lock/Iv-Start (07/07/16 21:34) Lipase (07/07/16 21:34) Amylase (07/07/16 21:34) Troponin I (07/07/16 23:41) Ekg Tracing (07/07/16 23:41) Myoglobin Serum (07/07/16 23:41) Vital Signs/I&O Vital Sign - Last 12Hours 07/07/16 07/07/16 21:16 21:16 Temp 96.8 Pulse 65 Resp 16 B/P 136/90 Pulse Ox 96 O2 Delivery Room Air Room Air Blood Pressure Mean: 105 Progress Note : Progress Note Seen and evaluated. IV, labs, EKG and chest x-ray ordered. Patient had aspirin earlier today so none was given. He is chest pain-free so no nitroglycerin. Monitor patient. Patient has had no pain during ER stay. We will do to our recheck of labs and repeat EKG. 0050: Repeat EKG shows no acute changes. Repeat labs are normal. Patient is still without pain and is ready to go home. Discharged home with return precautions. Patient verbalize understanding instructions and agreement with plan. ECG Initial ECG Impression Date: Jul 07, 2016 Initial ECG Impression Time: 21:21 Initial ECG Rate: 68 Initial ECG Rhythm: Normal Sinus Comment Sinus rhythm with leftward axis. No evidence of ST elevation MS. Similar to previous although axis has shifted a little bit to the left. Interpreted by me. Patient has been started on beta blockers in the interim. EKG : EKG Time: 23:44 Rate: 56 Rhythm: Normal Sinus Comment Sinus rhythm with leftward axis. No evidence of ST elevation MS. Unchanged from previous earlier today. Interpreted by me. Diagnostic Imaging Diagonstic Imaging: Xray Plain Films/CT/US/NM/MRI: chest Comments NAME: ALICE COLES MED REC#: [id number] PT STATUS: REG ER : 1960 PHYSICIAN: LINA POSADA MD ADMIT DATE: 07/07/16/ER Signed Date of Exam: 07/07/16 CHEST 1 VIEW, AP/PA ONLY Indication: Chest pain. Discussion: Single portable upright view of the chest was obtained, comparison 07/06/2016. The heart and lungs remain normal. No osseous abnormality. Impression: 1. Negative portable chest. Dictated by: Dictated on workstation # [id number] Dict: 07/07/[id number] Trans: 07/07/162204 [facility] [id number] Interpreted by: LEX ELENA MD Electronically signed by:LEX ELENA MD 07/07/162207 Departure Impression Impression: Primary Impression: Chest pain Qualified Code: R07.9 - Chest pain, unspecified Disposition: 01 HOME, SELF-CARE Condition: Improved Departure-Patient Inst. Decision time for Depature: 00:53 Referrals: [facility] [place] (PCP) Primary Care Physician KEENAN CHUN MD Patient Instructions: Chest Pain (DC) Add. Discharge Instructions: All discharge instructions reviewed with patient and/or family. Voiced understanding. Continue medications as previously prescribed. Follow-up with your doctor for appointment set. Return for worse pain, fever, vomiting, weakness, breathing problems, chest pain or other concerns as needed. LINA POSADA MD Jul 07, 2016 23:24
[2016-07-08 00:13] LABS: MYOGLOBIN SERUM 75.2 NG/ML (10.0-92.0); TROPONIN I < 0.30 NG/ML (<0.30)
[2016-07-08 01:00] VITALS: BP 125/81
== END 2016-07-08 01:00 | disposition home or self-care (01) ==
LOC: EDUNIT# 21:07 → ER 21:08
DX: R07.9 Chest pain, unspecified (principal); I10 Essential (primary) hypertension; Z79.899 Other long term (current) drug therapy
CPT/HCPCS: 36415; 71010; 80053; 82150; 83690; 83735; 83874; 84484; 85025; 85610; 85730; 93005; 93041

== ENCOUNTER 2022-08-29 14:56 | Emergency (ER) | payer BC ==
[~2022-08-29] VITALS: Ht 172 cm; Wt 99.7 kg
[~2022-08-29 14:56] MED LIST changes: -METO-270 PO; +MTP25TSR PO
[2022-08-29] MEDS ORDERED: ONDANSETRON 4 MG (ZOFRAN) ORAL DISSOLVE TAB SL STA (16:22)
--- NOTE | 2022-08-29 16:24 | ED GI ---
General Chief Complaint: Abdominal/GI Problems Stated Complaint: NAUSEA Nursing Triage Note: pt presents to ed with complaints of since 0200 this am he started having n/v/d and has been inable to keep liquids down. (MARIELENA LOYOLA) History of Present Illness Date Seen by Provider: August 29, 2022 Time Seen by Provider: 15:30 Initial Comments 61 year old male presents with n/v/d that started at 0200. Last episode approximately 0500. No abdominal pain. Has been drinking water all day with no further symptoms. His has similar symptoms. He denies any history of chronic abdominal issues. He has not taken any medications for his symptoms. Timing/Duration: 12 Hours Severity/Quality: Mild Associated Symptoms: No Back Pain, No Chest Pain, No Diaphoresis, No Fever/Chills, No Fatigue, No Headache, No Heartburn; Nausea/Vomiting; No Rash, No Shortness of Air, No Swelling/Mass in Abdomen, No Syncope, No Weakness (MARIELENA LOYOLA) Allergies and Home Medications Allergies Coded Allergies: No Known Drug Allergies (Unverified , 07/06/16) Patient Home Medication List Home Medication List Reviewed: Yes (MARIELENA LOYOLA) Metoprolol Succinate (Metoprolol Succinate) 25 Mg Tab.er.24h, 25 MG PO DAILY Prescribed by: SYDNEE MARINELLI on 07/07/16 0936 Ondansetron (Ondansetron Odt) 4 Mg Tab.rapdis, 4 MG PO Q6H PRN for NAUSEA/VOMITING Prescribed by: MARIELENA LOYOLA on 08/29/22 1628 Review of Systems Review of Systems Constitutional: no symptoms reported, see HPI Gastrointestinal: See HPI; Denies Abdominal Pain; Diarrhea, Nausea, Poor Appetite, Vomiting (MARIELENA LOYOLA) All Other Systems Reviewed Negative Unless Noted: Yes (MARIELENA LOYOLA) Past Vxzdgyp-Mlwgjr-Gmviit Hx Patient Social History Tobacco Use?: No Substance use?: No Alcohol Use?: Yes Alcohol Frequency: Several times a month Pt feels they are or have been: No (MARIELENA LOYOLA) Seasonal Allergies Seasonal Allergies: Yes (MARIELENA LOYOLA) Past Medical History Surgery/Hospitalization HX: pmh: htn, chol, allergy Surgeries: No Respiratory: No Cardiac: No Hypertension Neurological: No Reproductive Disorders: No Gastrointestinal: No Musculoskeletal: No Endocrine: No Cancer: No Psychosocial: No (MARILEENA LOYOLA) Family Medical History Reviewed Nursing Family Hx (MARIELENA LOYOLA) Cardiovascular disease Hypertension Myocardial infarction Respiratory disorder No Pertinent Family Hx, Vascular Disease (MARIELENA LOYOLA) Physical Exam Vital Signs Vital Signs - First Documented 08/29/22 15:13 Temp 36.8 Pulse 78 Resp 16 B/P (MAP) 142/79 (100) Pulse Ox 96 (USHA DOVER MD) Vital Signs Capillary Refill : Less Than 3 Seconds (MARIELENA LOYOLA) Height/Weight/BMI Height: 5'8" Weight: 210lbs. 0.0oz. [id number]; 33.00 BMI Method:Stated General Appearance: WD/WN, no apparent distress HEENT: normal ENT inspection, other (Oral mucosa pink and) Neck: non-tender, full range of motion, supple, normal inspection Respiratory: chest non-tender, lungs clear, normal breath sounds Cardiovascular: normal peripheral pulses, regular rate, rhythm, no edema Gastrointestinal: normal bowel sounds, non tender, soft; No distended, No guarding, No rebound, No tenderness Extremities: non-tender, normal inspection, normal capillary refill Neurologic/Psychiatric: no motor/sensory deficits, alert, normal mood/affect, oriented x 3 Skin: normal color, warm/dry (MARIELENA LOYOLA) Progress/Results/Core Measures Results/Orders Vital Signs/I&O 08/29/22 08/29/22 15:13 16:51 Temp 36.8 Pulse 78 80 Resp 16 B/P (MAP) 142/79 (100) 132/80 Pulse Ox 96 98 (USHA DOVER MD) Blood Pressure Mean: 100 Progress Progress Note : Time: 15:30 Progress Note Patient assessed we will give Zofran and continue to let him drink water. We will try crackers and a bit and see if that is tolerated. 1630 patient had no nausea, vomiting or diarrhea throughout the admission to the emergency department. He is tolerating saltines and water. Discharge instructions and return precautions reviewed with him. (MARIELENA LOYOLA) Departure Impression Primary Impression: Nausea and vomiting Qualified Codes: R11.2 - Nausea with vomiting, unspecified Additional Impression: Diarrhea Qualified Codes: R19.7 - Diarrhea, unspecified Disposition: 01 HOME, SELF-CARE Condition: Improved Departure-Patient Inst. Decision time for Depature: 14:15 (MARIELENA LOYOLA) Referrals: [place] (PCP/Family) Primary Care Physician Patient Instructions: Nausea and Vomiting, Adult (DC) Add. Discharge Instructions: Continue with a bland diet, increasing water and Sprite intake. Use Imodium 2 tablets every 4 hours for diarrhea. Use Zofran as prescribed for nausea and vomiting. Follow-up with your primary care provider if symptoms or not improving or worsen. All discharge instructions reviewed with patient and/or family. Voiced understanding. Scripts Ondansetron (Ondansetron Odt) 4 Mg Tab.rapdis 4 MG PO Q6H PRN for NAUSEA/VOMITING, #8 TAB 0 Refills Prov: MARIELENA LOYOLA 08/29/22 ATTENDING PHYSICIAN NOTE: I was physically present as attending physician in the emergency department during the care of this patient, but I was not directly involved in the decision making or delivery of care for this patient. (USHA DOVER MD) MARIELENA LOYOLA August 29, 2022 16:24 USHA DOVER MD August 29, 2022 21:23
[2022-08-29] MEDS ORDERED: ONDA4TAB11 PO (16:28)
[2022-08-29 16:51] VITALS: BP 132/80
== END 2022-08-29 16:51 | disposition home or self-care (01) ==
LOC: EDUNIT# 14:56 → ER 14:57
DX: R11.2 Nausea with vomiting, unspecified (principal); R19.7 Diarrhea, unspecified; Z28.310 Unvaccinated for COVID-19
CPT/HCPCS: 99283